=== PATIENT | female | born 1955 | race Caucasian/White ===

== ENCOUNTER → 2017-03-04 | Outpatient (CLI) | payer BC ==
[~2017-03-04] MED LIST: 8 HOUR650 MG PO; ASPIR 8181 MG PO; CALTRATE-600 W600 MG PO; COLACE-DPS100 MG PO; COMPAZINE10 MG PO; DECADRON-DPS4 MG PO; ELIQUIS5 MG PO; HCTZ12.5 MG PO; HYDROCODONE 5MG/5 MG PO; KLOR-CON M2020 ME1 PO; LEVAQUIN DPS500 MG PO; MULTI VITAMIN1 EACH PO; SLOW-MAG64 MG PO; VERAPAMIL ER180 M1 PO; VERAPAMIL SR120 MG PO; ZOFRAN ODT8 MG PO; ZYRTEC DPS10 MG PO
== END | disposition home or self-care (01) ==
LOC: RAD.S 12:45
DX: Z12.31 Encounter for screening mammogram for malignant neoplasm of breast (principal)